=== PATIENT | male | born 1960 | race Caucasian/White ===

== ENCOUNTER 2022-04-14 14:05 | Inpatient (IN) ==
[2022-04-14] MEDS ORDERED: *HR* LORazepam 1 MG TABLET PO ONE ×2 (14:41→21:39)
[2022-04-14 15:11] LABS: Basophils # 0.1 K/mcL (0.0-0.2); Basophils % 0.8 %; Eosinophils # 0.2 K/mcL (0.0-0.6); Eosinophils % 2.5 %; Hematocrit 42.3 % (37.5-50.1); Hemoglobin 14.2 g/dL (12.9-16.9); Immature Granulocytes % 0.3 % (0-4); Lymphocytes # 1.6 K/mcL (0.6-4.6); Lymphocytes % 26.7 %; Mean Corpuscular HGB Conc 33.6 g/dL (31.6-35.5); Mean Corpuscular Hemoglobin 32.2 pg (28.0-33.3); Mean Corpuscular Volume 95.9 fL (83.0-100.0); Monocytes # 0.5 K/mcL (0.0-1.3); Monocytes % 7.9 %; Neutrophils # 3.8 K/mcL (1.6-8.9); Platelet Count 193 K/mcL (140-400); Red Blood Count 4.41 M/mcL (4.19-5.50); Red Cell Distribution Width 13.1 % (11.5-14.5); Segmented Neutrophils % 61.8 %; White Blood Count 6.1 K/mcL (4.3-11.1)
[2022-04-14 15:27] LABS: Acetaminophen < 10 mcg/mL (10-20); BUN/Creatinine Ratio 17 (6-26); Blood Urea Nitrogen 14 mg/dL (8-23); Calcium 9.3 mg/dL (8.6-10.3); Carbon Dioxide 28 mEq/L (23-29); Chloride 104 mEq/L (98-107); Chol/HDL Ratio 2.9 (0-4.9); Cholesterol 174 mg/dL (< 200); Ethanol 45 mg/dL (Less than 10); Glucose 91 mg/dL (70-105); HDL Cholesterol 59 mg/dL (40-59); LDL Cholesterol,Calculated 96 mg/dL (< 100); Osmolality,Calculated 288 (280-300); Potassium 3.9 mEq/L (3.5-5.1); Salicylate < 2.5 mg/dL (15.0-30.0); Sodium 139 mEq/L (136-145); Triglycerides 95 mg/dL (< 150)
[2022-04-14 16:04] LABS: Estimated Average Glucose 114 mg/dl; Hemoglobin A1C 5.6 %
[2022-04-14 16:08] LABS: Bilirubin,Urine Negative (Negative); Blood,Urine Negative (Negative); Clarity,Urine Clear (Clear); Color,Urine Light-Yellow (Yellow); Glucose,Urine (UA) Normal (Normal); Ketones,Urine Negative (Negative); Leukocyte Esterase,Urine Negative (Negative); Nitrite,Urine Negative (Negative); PH,Urine 6.5 pH Units (5.0-8.0); Protein,Urine Negative (Neg-Trace); Specific Gravity,Urine 1.013 (1.010-1.025); Urobilinogen,Urine Normal (Normal)
[2022-04-14 16:15] LABS: Amphetamine Screen,Urine Negative ng/mL (Cutoff=1000); Barbiturate Screen,Urine Negative ng/mL (Cutoff=200); Benzodiazepines Screen,Urine Negative ng/mL (Cutoff=200); Cannabinoid Screen,Urine Positive ng/mL (Cutoff = 50); Cocaine Screen,Urine Positive ng/mL (Cutoff= 300); Opiate Screen,Urine Negative ng/mL (Cutoff=300); Phencyclidine Screen,Urine Negative ng/mL (Cutoff=25)
[2022-04-14 22:23] LABS: Influenza A PCR Negative (Negative); Influenza B PCR Negative (Negative); Resp. Syncytial Virus PCR Negative (Negative)
[2022-04-14 23:03] LABS: SARS-CoV-2 by PCR (In House) Positive (Negative)
[2022-04-15] MEDS ORDERED: Naloxone 0.4 MG/ML INJ IVP PRN (02:14)
[2022-04-15] MEDS ORDERED: Ondansetron 4 MG/2 ML VIAL IVP PRN (02:14)
[2022-04-15] MEDS ORDERED: Melatonin 3 MG TABLET PO PRN (02:14)
[2022-04-15] MEDS ORDERED: Acetaminophen 325 MG TABLET PO PRN (02:14)
[2022-04-15] MEDS ORDERED: *HR* LORazepam 1 MG TABLET PO PRN ×3 (02:16)
[2022-04-15] MEDS ORDERED: *HR* LORazepam 2 MG/ML VIAL IVP PRN ×2 (03:49)
[2022-04-15] MEDS: *HR* LORazepam 2 MG/ML VIAL IVP PRN (04:03)
[2022-04-15] MEDS: *HR* Enoxaparin 40 MG/0.4 ML SYRINGE SQ SCH (06:33)
[2022-04-15] MEDS: Folic Acid 1 MG TABLET PO SCH (07:51)
[2022-04-15] MEDS: Thiamine (B-1) 100 MG TABLET PO SCH (07:51)
[2022-04-15] MEDS: Azithromycin 250 MG TABLET PO SCH (07:51)
[2022-04-15] MEDS: predniSONE 20 MG TABLET PO SCH (07:51)
[2022-04-15] MEDS: Vitamin B Complex/Vit C/Vit E 1 EACH TABLET PO SCH (07:51)
[2022-04-15] MEDS: Famotidine 20 MG TABLET PO SCH ×2 (07:51→14:25)
[2022-04-15] MEDS: haloperidoL 1 MG TABLET PO SCH ×3 (08:00→19:48)
[2022-04-15] MEDS: *HR* Buprenorphine HCl 8 MG TAB.SUBL SL SCH ×2 (08:55→19:49)
[2022-04-15 10:15] LABS: Immature Granulocytes % 0.4 % (0-4); Mean Corpuscular HGB Conc 33.3 g/dL (31.6-35.5); Mean Corpuscular Hemoglobin 31.7 pg (28.0-33.3); Mean Corpuscular Volume 95.4 fL (83.0-100.0)
[2022-04-15 10:38] LABS: BUN/Creatinine Ratio 21 (6-26); Blood Urea Nitrogen 15 mg/dL (8-23); Calcium 9.2 mg/dL (8.6-10.3); Carbon Dioxide 25 mEq/L (23-29); Chloride 105 mEq/L (98-107); Glucose 94 mg/dL (70-105); Osmolality,Calculated 279 (280-300); Potassium 4.5 mEq/L (3.5-5.1); Sodium 134 mEq/L (136-145)
[2022-04-15 10:39] LABS: Basophils % 0.8 %; Eosinophils # 0.1 K/mcL (0.0-0.6); Eosinophils % 2.4 %; Hematocrit 43.6 % (37.5-50.1); Hemoglobin 14.5 g/dL (12.9-16.9); Lymphocytes # 0.6 K/mcL (0.6-4.6); Lymphocytes % 11.5 %; Mean Platelet Volume 10.2 fL (9.4-12.4); Monocytes # 0.2 K/mcL (0.0-1.3); Monocytes % 3.8 %; Neutrophils # 4.3 K/mcL (1.6-8.9); Platelet Count 181 K/mcL (140-400); Red Blood Count 4.57 M/mcL (4.19-5.50); Red Cell Distribution Width 13.1 % (11.5-14.5); Segmented Neutrophils % 81.1 %; White Blood Count 5.3 K/mcL (4.3-11.1)
[2022-04-15] MEDS: Nicotine 21 MG PATCH.TD24 TD SCH (16:34)
[2022-04-15] MEDS: QUEtiapine Fumarate 25 MG TABLET PO SCH (19:48)
[2022-04-16] MEDS: *HR* LORazepam 2 MG/ML VIAL IVP PRN (04:16)
[2022-04-16] MEDS: *HR* Enoxaparin 40 MG/0.4 ML SYRINGE SQ SCH (06:11)
[2022-04-16] MEDS: *HR* Buprenorphine HCl 8 MG TAB.SUBL SL SCH ×2 (09:18→21:31)
[2022-04-16] MEDS: predniSONE 20 MG TABLET PO SCH (09:19)
[2022-04-16] MEDS: Famotidine 20 MG TABLET PO SCH ×2 (09:19→17:47)
[2022-04-16] MEDS: Azithromycin 250 MG TABLET PO SCH (09:19)
[2022-04-16] MEDS: Folic Acid 1 MG TABLET PO SCH (09:19)
[2022-04-16] MEDS: Gabapentin 300 MG CAPSULE PO SCH ×3 (09:19→21:31)
[2022-04-16] MEDS: Nicotine 21 MG PATCH.TD24 TD SCH (09:19)
[2022-04-16] MEDS: Thiamine (B-1) 100 MG TABLET PO SCH (09:19)
[2022-04-16] MEDS: Vitamin B Complex/Vit C/Vit E 1 EACH TABLET PO SCH (09:19)
[2022-04-16] MEDS: hydrOXYzine pamoate 25 MG CAPSULE PO SCH ×3 (09:19→21:31)
[2022-04-16] MEDS: haloperidoL 1 MG TABLET PO SCH ×3 (09:23→21:31)
[2022-04-16 18:57] VITALS: BP 116/76; PULSE 74; TEMP 97.7; O2SAT 95
[2022-04-16] MEDS: QUEtiapine Fumarate 25 MG TABLET PO SCH (21:31)
[2022-04-16] MEDS ORDERED: hydrOXYzine pamoate 25 MG CAPSULE PO ONE (23:58)
[2022-04-16] MEDS ORDERED: *HR* Buprenorphine HCl 8 MG TAB.SUBL SL ONE (23:58)
[2022-04-16] MEDS ORDERED: haloperidoL 1 MG TABLET PO ONE (23:58)
[2022-04-16] MEDS ORDERED: Gabapentin 300 MG CAPSULE PO ONE (23:58)
[2022-04-16] MEDS ORDERED: QUEtiapine Fumarate 25 MG TABLET PO ONE (23:58)
== END 2022-04-16 23:59 | disposition other institution (70) | DRG 896 ==
LOC: EMEROOARM 14:05 → 3BNU 14:05 → SUATTDRO 04-15 02:20 → 3BNU 04-15 03:30
PROVIDERS: ADMIT Internal Medicine; ATTEND Internal Medicine